=== PATIENT | female | born 1995 | race African-American/Black ===

== ENCOUNTER 2019-12-16 11:14 | Emergency (ER) | payer OTHER ==
[2019-12-16 11:43] LABS: HCG UR QUAL POSITIVE
--- NOTE | 2019-12-16 12:21 | ED Physician Documentation ---
History of Present Illness - Stated complaint Stated Complaint: FEMALE - Chief complaint Chief Complaint: General - History obtained from History obtained from: Patient - Additonal information Additional information: This is a 24-year-old woman who presents with her significant other complaints that she had an IUD placed in June. She had a menstrual period on October 15 and has not had a cycle since then so she did a test that came back positive. She denies any pain. She believes her blood type is O+. She is never been before. Review of Systems GI: denies: Abdominal Pain : reports: LMP (Oct 15, 2019). denies: Vaginal bleeding PD PAST MEDICAL HISTORY - Past Medical History Past Medical History: Yes - Past Surgical History Past Surgical History: No - Present Medications Home Medications: Ambulatory Orders Medication Instructions Recorded Confirmed Levonorgestrel 14 Mcg/24Hr [Sondra] 1 each IY 12/16/19 - Allergies Allergies/Adverse Reactions: Allergies Allergy/AdvReac Type Severity Reaction Status Date / Time No Known Drug Allergies Allergy Verified 12/16/19 11:22 - Social History Does the pt smoke?: No Smoking Status: Never smoker Does the pt drink ETOH?: No Does the pt have substance abuse?: No - Immunizations Immunizations are current?: Yes PD ED PE NORMAL - Vitals Vital signs reviewed: Yes - General General: Alert and oriented X 3, No acute distress, Well developed/nourished - HEENT HEENT: Atraumatic - Cardiac Cardiac: RRR, No murmur - Respiratory Respiratory: No respiratory distress, Clear bilaterally - Abdomen Abdomen: Normal bowel sounds, Soft, Non tender - Neuro Neuro: Alert and oriented X 3, No motor deficit, No sensory deficit, Normal speech Results - Vitals Vitals: Vital Signs - 24 hr 12/16/19 12/16/19 11:19 17:06 Temperature 36.5 C 37.0 C Heart Rate 99 95 Respiratory 18 18 Rate Blood Pressure 142/85 H 128/81 H O2 Saturation 100 97 Oxygen O2 Source Room air - Labs Labs: Laboratory Tests 12/16/19 12/16/19 12/16/19 11:30 12:44 12:44 WBC 9.6 RBC 4.33 Hgb 12.9 Hct 38.8 MCV 89.6 MCH 29.8 MCHC 33.2 RDW 13.1 Plt Count 235 MPV 11.3 H Neut # (Auto) 7.0 H Lymph # (Auto) 1.5 [place] # (Auto) 1.0 Eos # (Auto) 0.1 Baso # (Auto) 0.0 Absolute Nucleated RBC 0.00 Nucleated RBC % 0.0 HCG, Quant Ur Specific [place] 1.020 Urine HCG, Qual POSITIVE Blood Type O POSITIVE 12/16/19 12:44 WBC RBC Hgb Hct MCV MCH MCHC RDW Plt Count MPV Neut # (Auto) Lymph # (Auto) [place] # (Auto) Eos # (Auto) Baso # (Auto) Absolute Nucleated RBC Nucleated RBC % HCG, Quant 145051.00 Ur Specific [place] Urine HCG, Qual Blood Type PD MEDICAL DECISION MAKING - ED course Complexity details: reviewed results, d/w patient, d/w family ED course: 1400: The patient is indeed . Her quantitative hCG was over 194,000. Blood type is O+. I ordered an ultrasound to confirm the location of the . 1701: Ultrasound shows a 9-week 2-day live intrauterine . The IUD is very low-lying. Results were discussed with the patient and her significant other. She feels that termination of the would be most appropriate since she had the IUD placed to prevent . She also has already contacted [facility] in [place] and has their contact information but they are several weeks out for any type of visit. I also contacted Dr. Townsend who is on-call for OB. She feels that it is too far into the for pills to be adequately reliable for termination. She knows the [facility] does not do elective terminations and is not sure of her options here locally so she is going to look into this on Wednesday morning and contact the patient. I did provide her with the patient's name and contact information. I have also provided the patient with Dr. Townsend's office number. I provided the patient a copy of her ultrasound report so that she has confirmation at [facility] of not only the but dates as well. Departure - Departure Disposition: 01 Home, Self Care Clinical Impression: Qualifiers: Weeks of gestation: 9 weeks Qualified Code(s): Z3A.09 - 9 weeks gestation of Condition: Good Follow-Up: Carine Townsend MD [Provider Admit Priv/Credential] - Comments: Dr Cary plans to contact you tomorrow. If you do not hear from her, then you should contact her office. Follow-up through [facility] in [place] am is also an option. Discharge Date/Time: 12/16/19 17:10
[2019-12-16 13:07] LABS: BASOPHILS % (AUTO) 0.2 %; EOSINOPHILS # (AUTO) 0.1 10^3/uL (0.0-0.7); HGB - HEMOGLOBIN 12.9 g/dL (12.0-16.0); LYMPHOCYTES # (AUTO) 1.5 10^3/uL (1.5-3.5); LYMPHOCYTES % (AUTO) 15.2 %; MEAN CORPUSCULAR HEMOGLOBIN 29.8 pg (27.0-31.0); MEAN CORPUSCULAR HGB CONC 33.2 g/dL (32.0-36.0); MEAN CORPUSCULAR VOLUME 89.6 fL (81.0-99.0); MEAN PLATELET VOLUME 11.3 fL (7.9-10.8); MONOCYTES % (AUTO) 10.1 %; NEUTROPHILS % (AUTO) 72.9 %; PLT - PLATELET COUNT 235 10^3/uL (130-450); RED BLOOD COUNT 4.33 10^6/uL (4.20-5.40); RED CELL DISTRIBUTION WIDTH 13.1 % (12.0-15.0); WHITE BLOOD COUNT 9.6 x10^3/uL (4.8-10.8)
--- NOTE | 2019-12-16 15:48 | Ultrasound Report ---
Reason: positive with IUD Procedure Date: 12/16/2019 Accession Number: [id number] / [id number] Procedure: US - OB First Trimester CPT Code: Final Report FULL RESULT: EXAM: FIRST TRIMESTER OBSTETRIC ULTRASOUND (Less than 11 weeks) EXAM DATE: 12/16/2019 02:10 PM. CLINICAL HISTORY: Positive with IUD. LMP: 10/10/2019 with EGA of 9 weeks 4 days and YANN of 07/16/2020. COMPARISONS: None. TECHNIQUE: Transabdominal and transvaginal ultrasound examination with static image documentation. ASSESSMENT: Gestational Sac: Single intrauterine. Mean gestational sac diameter: 37 mm = 9 weeks/ 0 days. Embryo: CRL (crown-rump length) 25 mm = 9 weeks/ 2 days. Cardiac activity: 171 beats per minute. Yolk sac: 5 mm. Amniotic fluid: Not accurately assessed at this gestational age. Early placenta: Not visible at this gestational age. Other: A perigestational fluid collection demonstrated in anteroinferior aspect of the gestational sac, measuring approximately 2 cm. MATERNAL STRUCTURES: Uterus: Anteverted. There is an IUD in lower uterine segment. A posterior intramural fibroid noted measuring 3.7 x 3.1 x 4 cm. Cervix: Closed. Right Ovary/Adnexa: The ovary measures 4 x 2.1 x 2.9 cm, volume 12.3 cc. Unremarkable. A corpus luteal cyst seen in right ovary measuring 2.1 x 1.7 x 1.9 cm. Left Ovary/Adnexa: The ovary measures 2.9 x 1.3 x 2.5 cm, volume 5 cc. Unremarkable. Free Fluid: None. Other: None. IMPRESSION: 1. Single viable intrauterine at EGA 9 weeks/ 2 days with YANN 07/18/2020 based on crown-rump length. 2. An IUD in lower uterine segment, extending into the cervical canal. Cervix is closed. A posterior intramural fibroid measures 3.7 x 3.1 x 4 cm. 3. A perigestational fluid collection demonstrated in anteroinferior aspect of the gestational sac, measuring approximately 2 cm. RADIA The call report notification system was initiated by Dr. Chitra Levy at 03:35 PM on 12/16/2019. The above call report findings were discussed with Nova Teran by Dr. Chitra Levy at 03:47 PM on 12/16/2019.
[2019-12-16 17:07] VITALS: BP 128/81
== END 2019-12-16 17:10 | disposition home or self-care (01) ==
LOC: ED 11:14
DX: O26.31 Retained intrauterine contraceptive device in pregnancy, first trimester (principal); Z3A.09 9 weeks gestation of pregnancy
CPT/HCPCS: 36415; 76801; 76817; 81025; 84702; 85025; 86900; 86901; 99283; 99284

== ENCOUNTER 2019-12-25 09:49 | Emergency (ER) | payer OTHER ==
[2019-12-25] MEDS ORDERED: miSOPROStoL 100 MCG TABLET BC STA (10:59)
[2019-12-25 11:04] LABS: BASOPHILS % (AUTO) 0.3 %; EOSINOPHILS # (AUTO) 0.2 10^3/uL (0.0-0.7); EOSINOPHILS % (AUTO) 1.9 %; HGB - HEMOGLOBIN 9.8 g/dL (12.0-16.0); LYMPHOCYTES # (AUTO) 1.5 10^3/uL (1.5-3.5); MEAN CORPUSCULAR HEMOGLOBIN 30.5 pg (27.0-31.0); MEAN CORPUSCULAR HGB CONC 32.9 g/dL (32.0-36.0); MEAN CORPUSCULAR VOLUME 92.8 fL (81.0-99.0); MEAN PLATELET VOLUME 11.6 fL (7.9-10.8); MONOCYTES # (AUTO) 1.2 10^3/uL (0.0-1.0); MONOCYTES % (AUTO) 11.1 %; NEUTROPHILS # (AUTO) 7.8 10^3/uL (1.5-6.6); NEUTROPHILS % (AUTO) 72.1 %; PLT - PLATELET COUNT 208 10^3/uL (130-450); RED BLOOD COUNT 3.21 10^6/uL (4.20-5.40); RED CELL DISTRIBUTION WIDTH 14.2 % (12.0-15.0); WHITE BLOOD COUNT 10.9 x10^3/uL (4.8-10.8)
[2019-12-25] MEDS ORDERED: miSOPROStoL 200 MCG TABLET BC STA (11:08)
[2019-12-25 13:03] LABS: ALBUMIN 3.9 g/dL (3.2-5.5); ALBUMIN/GLOBULIN RATIO 1.1 (1.0-2.2); ALKALINE PHOSPHATASE 55 IU/L (42-121); ALT ALANINE AMINOTRANSFERASE 12 IU/L (10-60); AST ASPARTATE AMINOTRANSFERASE 24 IU/L (10-42); BILIRUBIN,TOTAL 0.4 mg/dL (0.2-1.0); BUN - BLOOD UREA NITROGEN < 5 mg/dL (6-20); CARBON DIOXIDE - CO2 21 mmol/L (21-32); CHLORIDE 107 mmol/L (101-111); CREATININE 0.6 mg/dL (0.4-1.0); GFR - MDRD 148 (>89); GLUCOSE 80 mg/dL (70-100); LIPASE 22 U/L (22-51); SODIUM 138 mmol/L (135-145); TOTAL PROTEIN 7.4 g/dL (6.7-8.2)
--- NOTE | 2019-12-25 13:12 | ED Physician Documentation ---
PD HPI FEMALE - Stated complaint Stated Complaint: FEMALE - Chief complaint Chief Complaint: Abd Pain - History obtained from History obtained from: Patient - History of Present Illness Timing - onset: Today Timing - duration: Hours Timing - details: Abrupt onset, Still present Associated symptoms: Vaginal bleeding Contributing factors: Other (ab done 5 days ago surgical) Similar symptoms before: Has not had sx before Recently seen: Emergency Dept, Surgery - Additional information Additional information: 24-year-old female who was seen here in the emerge department 10 days ago for a missed. Who had an IUD in place was found to be . She was approximately 9 weeks and she was not ready to have a baby. She had the IUD removed at an urgent care the following day and she had a therapeutic done 5 days ago in [place]. She states that she was not having any significant bleeding until this morning when she developed significant bleeding cramping and passing of clots the size of a lemon. She has had persistence of cramping and bleeding and comes now into the emergency department for evaluation. Review of Systems Constitutional: denies: Fever Eyes: denies: Decreased vision Ears: denies: Ear pain Nose: denies: Rhinorrhea / runny nose, Congestion Throat: denies: Sore throat Cardiac: denies: Chest pain / pressure, Palpitations Respiratory: denies: Dyspnea GI: reports: Abdominal Pain, Nausea : reports: Vaginal bleeding. 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 - Present Medications Home Medications: Ambulatory Orders Medication Instructions Recorded Confirmed Levonorgestrel 14 Mcg/24Hr [Sondra] 1 each IY 12/16/19 Ferrous Sulfate 325 mg PO DAILY #30 tablet 12/25/19 Methylergonovine Maleate 0.2 mg PO Q6HR #4 tablet 12/25/19 [Methergine] - Allergies Allergies/Adverse Reactions: Allergies Allergy/AdvReac Type Severity Reaction Status Date / Time No Known Drug Allergies Allergy Verified 12/25/19 10:00 - Social History Does the pt smoke?: No Smoking Status: Never smoker Does the pt drink ETOH?: No Does the pt have substance abuse?: No - Immunizations Immunizations are current?: Yes PD ED PE NORMAL - Vitals Vital signs reviewed: Yes (hypertensive ) - General General: Alert and oriented X 3, No acute distress, Well developed/nourished - HEENT HEENT: Atraumatic, PERRL, EOMI, Ears normal - Neck Neck: Supple, no meningeal sign, No bony TTP - Cardiac Cardiac: RRR, No murmur - Respiratory Respiratory: No respiratory distress, Clear bilaterally - Abdomen Abdomen: Soft, Other (mild suprapubic tenderness) - Back Back: No CVA TTP, No spinal TTP - Derm Derm: Normal color, Warm and dry, No rash - Extremities Extremities: No deformity, No edema, No calf tenderness / cord - Neuro Neuro: Alert and oriented X 3, annealer helper 2-12 intact, No motor deficit, No sensory deficit, Normal speech Eye Opening: Spontaneous Motor: Obeys Commands Verbal: Oriented GCS Score: 15 - Psych Psych: Other (mood is teary eyed affect is appropriate) Results - Vitals Vitals: Vital Signs - 24 hr 12/25/19 12/25/19 12/25/19 10:00 16:55 19:23 Temperature 36.7 C 37.3 C Heart Rate 88 79 80 Respiratory 14 17 16 Rate Blood Pressure 127/90 H 109/97 H 124/79 O2 Saturation 100 100 100 Oxygen O2 Source Room air - Labs Labs: Laboratory Tests 12/25/19 12/25/19 12/25/19 10:40 12:15 12:15 WBC 10.9 H RBC 3.21 L Hgb 9.8 L Hct 29.8 L MCV 92.8 MCH 30.5 MCHC 32.9 RDW 14.2 Plt Count 208 MPV 11.6 H Neut # (Auto) 7.8 H Lymph # (Auto) 1.5 [place] # (Auto) 1.2 H Eos # (Auto) 0.2 Baso # (Auto) 0.0 Absolute Nucleated RBC 0.00 Nucleated RBC % 0.0 Sodium 138 Potassium 3.9 Chloride 107 Carbon Dioxide 21 Anion Gap 10.0 BUN < 5 L Creatinine 0.6 Estimated GFR (MDRD) 148 Glucose 80 Calcium 9.0 Total Bilirubin 0.4 AST 24 ALT 12 Alkaline Phosphatase 55 Total Protein 7.4 Albumin 3.9 Globulin 3.5 Albumin/Globulin Ratio 1.1 Lipase 22 HCG, Quant 5079.00 Blood Type 12/25/19 12:15 WBC RBC Hgb Hct MCV MCH MCHC RDW Plt Count MPV Neut # (Auto) Lymph # (Auto) [place] # (Auto) Eos # (Auto) Baso # (Auto) Absolute Nucleated RBC Nucleated RBC % Sodium Potassium Chloride Carbon Dioxide Anion Gap BUN Creatinine Estimated GFR (MDRD) Glucose Calcium Total Bilirubin AST ALT Alkaline Phosphatase Total Protein Albumin Globulin Albumin/Globulin Ratio Lipase HCG, Quant Blood Type O POSITIVE PD MEDICAL DECISION MAKING - ED course Complexity details: reviewed old records, reviewed results, re-evaluated patient, considered differential, d/w patient, d/w family ED course: 4-year-old female with a recent therapeutic appears to have retained products of conception on her pelvic ultrasound. Dr. Alarcon is consulted and the case recommends administration of as a possible 600 mcg sublingual. Patient is administered this and has a reduction in her bleeding. She has enough reduction in her bleeding that urgent D&C is not required. Dr. Alarcon does come to the emergency department evaluate the patient and makes recommendations for treatment including administration of oral iron for her significant blood loss and drop of crit of about 10 points. She recommends we use Methergine 0.2 mg every 6 hours for 4 doses. The patient will be excused from work for 2 days. Departure - Departure Disposition: Home, Self Care Clinical Impression: Retained products of conception following Condition: Stable Instructions: ED Therapeutic Follow-Up: Dior Alarcon MD [Provider Admit Priv/Credential] - Prescriptions: Methylergonovine Maleate [Methergine] 0.2 mg PO Q6HR #4 tablet Ferrous Sulfate 325 mg PO DAILY #30 tablet Comments: If you develop excessive bleeding or excessive pain return to the ED. Forms: Activity restrictions Discharge Date/Time: 12/25/19 19:25
[2019-12-25 19:24] VITALS: BP 124/79
--- NOTE | 2019-12-26 08:10 | Ultrasound Report ---
Reason: POST HEMORRHAGE R/O RETAINED PRODUCTS Procedure Date: 12/25/2019 Accession Number: [id number] / [id number] Procedure: US - Pelvic Complete CPT Code: Final Report FULL RESULT: EXAM: PELVIC ULTRASOUND EXAM DATE: 12/25/2019 12:08 PM. CLINICAL HISTORY: Post hemorrhage, rule out retained products. COMPARISON: None. TECHNIQUE: Realtime transabdominal pelvic scan performed to identify the uterus and adnexa and as an overview of other pelvic structures, followed by transvaginal scan to provide greater detail of the uterus and adnexa, with static image documentation. FINDINGS: Uterus: 10.6 x 4.4 x 7.2 cm, volume 175 cc. Anteverted position. Normal overall size and echotexture. Masses: None. Endometrium: 19.2 mm. The endometrial tissues have heterogeneous echogenicity, with some cystic areas. Some of the tissue is vascularized. The findings are suggestive of retained products of conception. Cervix: Unremarkable. Right Ovary: 2.7 x 1.6 x 2.3 cm, volume 5.2 cc. Normal echotexture and blood flow. Left Ovary: 3.1 x 1.2 x 2.7 cm, volume 5.2 cc. Normal echotexture and blood flow. Free Fluid: None. Other: None. IMPRESSION: Findings suggestive of retained products of conception. RADIA
== END 2019-12-25 19:25 | disposition home or self-care (01) ==
LOC: ED 09:49
DX: O07.1 Delayed or excessive hemorrhage following failed attempted termination of pregnancy (principal)
CPT/HCPCS: 36415; 76856; 80053; 83690; 84702; 85025; 86900; 86901; 99284; A9270

== ENCOUNTER 2022-03-05 08:00 | Outpatient (CLI) | payer OTHER | END 2022-03-05 08:01 | disposition home or self-care (01) | LOC: LAB.N 08:00 | PROVIDERS: ATTEND Registered Nurse | DX: J02.8 Acute pharyngitis due to other specified organisms (principal); Z20.822 Contact with and (suspected) exposure to COVID-19 ==

== ENCOUNTER 2023-09-09 08:50 | Outpatient (CLI) | payer OTHER ==
[2023-09-10 08:59] LABS: BILIRUBIN,URINE NEGATIVE (NEGATIVE); GLUCOSE, URINE (UA) NEGATIVE (NEGATIVE); KETONES,URINE (UA) NEGATIVE (NEGATIVE); LEUKOCYTE ESTERASE, URINE SMALL (NEGATIVE); NITRITE,URINE NEGATIVE (NEGATIVE); OCCULT BLOOD,URINE SMALL (NEGATIVE); PROTEIN,URINE NEGATIVE (NEGATIVE); UROBILINOGEN,URINE 0.2 (NORMAL) E.U./dL (NORMAL)
[2023-09-10 09:12] LABS: BACTERIA,URINE Moderate /HPF (None Seen); CLARITY,URINE CLEAR (CLEAR); RBC,URINE None Seen /HPF (0-5); SQUAMOUS EPITHELIAL CELL,UR FEW Squamous (<= Few); WBC CLUMPS,URINE PRESENT
== END 2023-09-09 08:51 | disposition home or self-care (01) ==
LOC: LAB.WC 08:50
PROVIDERS: ATTEND Nurse Practitioner
DX: R10.2 Pelvic and perineal pain (principal)
CPT/HCPCS: 81001; 87086

== ENCOUNTER 2023-09-15 08:00 | Outpatient (CLI) | payer OTHER ==
[2023-09-15 20:27] LABS: BACTERIAL VAGINOSIS DNA NEGATIVE (NEGATIVE); CANDIDA GLABRATA DNA NEGATIVE (NEGATIVE); CANDIDA GROUP DNA NEGATIVE (NEGATIVE); CANDIDA KRUSEI DNA NEGATIVE (NEGATIVE); TRICHOMONAS VAGINALIS DNA NEGATIVE (NEGATIVE)
== END 2023-09-15 23:59 | disposition home or self-care (01) ==
LOC: LAB.WC 08:00
PROVIDERS: ATTEND Nurse Practitioner
DX: R10.2 Pelvic and perineal pain (principal)
CPT/HCPCS: 81514